=== PATIENT | female | born 2000 | race Caucasian/White ===

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

== ENCOUNTER 2018-08-08 21:14 | Emergency (ER) | payer OTHER ==
[2018-08-08 21:29] VITALS: BP 134/88; PULSE 63; TEMP 98.6; BMI 29.7
--- NOTE | 2018-08-08 21:29 | PDOC ---
Rapid Medical Evaluation Medical Evaluation: Allergies Allergy/AdvReac Type Severity Reaction Status Date / Time No Known Allergies Allergy Verified 08/06/17 16:16 I have performed a brief in-person evaluation of this patient. The patient presents with a chief complaint of: c/o suprapubic pain since 3 days ago along with mild nausea; denies vomiting, diarrhea, urinary complaints Pertinent physical exam findings: In NAD, abdomen soft, ND, NT I have ordered the following: UCG, UA The patient will proceed to the ED for further evaluation. 08/08/18 21:27
[2018-08-08 22:21] LABS: URINE APPEARANCE SLCLOUDY; URINE BILIRUBIN NEGATIVE (<2.0 mg/dL); URINE COLOR YELLOW; URINE GLUCOSE (UA) NEGATIVE (NEGATIVE); URINE KETONE NEGATIVE (NEGATIVE); URINE LEUK ESTERASE NEGATIVE (NEGATIVE); URINE NITRITE NEGATIVE (NEGATIVE); URINE PROTEIN NEGATIVE (NEGATIVE)
[2018-08-08 22:22] LABS: HCG,QUALITATIVE URINE Negative
--- NOTE | 2018-08-08 22:43 | PDOC ---
History of Present Illness - General Chief Complaint: Nausea Stated Complaint: STOMACH PAIN Time Seen by Provider: 08/08/18 21:27 - History of Present Illness Initial Comments: 08/08/18 22:40 18-year-old female without comorbidities presents for evaluation of abdominal pain and nausea without any other associated symptoms Past History - Past Medical History Allergies/Adverse Reactions: Allergies Allergy/AdvReac Type Severity Reaction Status Date / Time No Known Allergies Allergy Verified 08/06/17 16:16 Home Medications: Ambulatory Orders NK [No Known Home Medication] 10/30/15 COPD: No - Immunization History Immunization Up to Date: Yes - Suicide/Smoking/Psychosocial Hx Smoking History: Current some day smoker Number of Cigarettes Smoked Daily: 2 Information on smoking cessation initiated: No Hx Alcohol Use: No Drug/Substance Use Hx: No Substance Use Type: None Review of Systems - Review of Systems Constitutional: No: Fever ABD/GI: Yes: Nausea. No: Constipated, Diarrhea, Vomiting *Physical Exam - Vital Signs Last Vital Signs Temp Pulse Resp BP Pulse Ox 98.6 F 63 18 134/88 100 08/08/18 21:28 08/08/18 21:28 08/08/18 21:28 08/08/18 21:28 08/08/18 21:28 - Physical Exam Comments: 08/08/18 22:41 HEAD: NC/AT EYES: Conjuntiva clear Ears: Canals and TM's normal NOSE: No d/c THROAT: Moist mucous membrances, oral pharanx clear, uvula midline NECK: Supple without adenopathy CARDIAC: S1 S2 LUNGS: CTA Full and Equal breath sounds ABDOMEN: Positive bowel sounds left upper and lower quadrant tenderness with guarding MS: Full ROM in all joints without edema NEUROLOGIC: No gross sensory or motor deficits, NVID SKIN: Normal color and temperature no lesions or rashes Moderate Sedation - Procedure Monitoring Vital Signs: Procedure Monitoring Vital Signs Temperature 98.6 F 08/08/18 21:28 Pulse Rate 63 08/08/18 21:28 Respiratory Rate 18 08/08/18 21:28 Blood Pressure 134/88 08/08/18 21:28 O2 Sat by Pulse Oximetry (%) 100 08/08/18 21:28 ED Treatment Course - ADDITIONAL ORDERS Additional order review: Laboratory Results 08/08/18 21:48 Urine Color Yellow Urine Appearance Slcloudy Urine pH 7.0 Ur Specific [place] 1.026 Urine Protein Negative Urine Glucose (UA) Negative Urine Ketones Negative Urine Blood Negative Urine Nitrite Negative Urine Bilirubin Negative Urine Urobilinogen 2.0 H Ur Leukocyte Esterase Negative Urine HCG, Qual Negative Medical Decision Making - Medical Decision Making 08/08/18 22:42 signed out to main er *DC/Admit/Observation/Transfer Diagnosis at time of Disposition: Abdominal pain - Referrals - Patient Instructions - Post Discharge Activity
[2018-08-08 23:00] LABS: BASO % 0.9 % (0-2.0); HEMATOCRIT 38.7 % (32.4-45.2); HEMOGLOBIN 13.4 GM/dL (10.7-15.3); LYMPH % 28.6 % (8-40); MCHC 34.8 g/dl (32.0-36.0); MEAN CELL VOLUME 86.2 fl (80-96); MEAN PLT VOLUME 8.3 fl (7.5-11.1); MONO % 9.6 % (3.8-10.2); NEUT % 58.9 % (42.8-82.8); PLATELET COUNT 283 K/MM3 (134-434); RBC 4.49 M/mm3 (3.60-5.2); RDW 13.2 % (11.6-15.6); WHITE BLOOD COUNT 9.7 K/mm3 (4.0-10.0)
--- NOTE | 2018-08-08 23:17 | PDOC ---
*Physical Exam - Vital Signs Last Vital Signs Temp Pulse Resp BP Pulse Ox 98.6 F 63 18 134/88 100 08/08/18 21:28 08/08/18 21:28 08/08/18 21:28 08/08/18 21:28 08/08/18 21:28 ED Treatment Course - LABORATORY CBC & Chemistry Diagram: 08/08/18 22:48 08/08/18 22:48 - ADDITIONAL ORDERS Additional order review: Laboratory Results 08/08/18 21:48 Urine Color Yellow Urine Appearance Slcloudy Urine pH 7.0 Ur Specific [place] 1.026 Urine Protein Negative Urine Glucose (UA) Negative Urine Ketones Negative Urine Blood Negative Urine Nitrite Negative Urine Bilirubin Negative Urine Urobilinogen 2.0 H Ur Leukocyte Esterase Negative Urine HCG, Qual Negative 08/08/18 22:48 RBC 4.49 MCV 86.2 MCHC 34.8 RDW 13.2 MPV 8.3 Neutrophils % 58.9 Lymphocytes % 28.6 Monocytes % 9.6 Eosinophils % 2.0 Basophils % 0.9 Medical Decision Making - Medical Decision Making 08/08/18 23:17 Patient seen by the advanced practice provider under my direct supervision. Ancillary testing reviewed as necessary. I agree with plan as outlined by the advanced practice provider. *DC/Admit/Observation/Transfer Diagnosis at time of Disposition: Abdominal pain - Referrals - Patient Instructions - Post Discharge Activity
[2018-08-08 23:31] LABS: ALBUMIN 3.7 g/dl (3.4-5.0); ALK PHOS 73 U/L (45-117); ANION GAP 5 MMOL/L (8-16); BILIRUBIN,TOTAL 0.4 mg/dL (0.2-1); BLOOD UREA NITROGEN 12 mg/dL (7-18); CALCIUM 8.7 mg/dL (8.5-10.1); CHLORIDE 103 mmol/L (98-107); CO2 31 mmol/L (21-32); CREATININE 0.7 mg/dL (0.55-1.3); GLUCOSE,RANDOM 98 mg/dL (74-106); LIPASE 107 U/L (73-393); POTASSIUM 3.7 mmol/L (3.5-5.1); SGOT/AST 23 U/L (15-37); SGPT/ALT 46 U/L (13-61); SODIUM 139 mmol/L (136-145); TOT PROT 7.8 g/dl (6.4-8.2)
--- NOTE | 2018-08-08 23:33 | PDOC ---
*Physical Exam - Vital Signs Last Vital Signs Temp Pulse Resp BP Pulse Ox 98.6 F 63 18 134/88 100 08/08/18 21:28 08/08/18 21:28 08/08/18 21:28 08/08/18 21:28 08/08/18 21:28 - Physical Exam General Appearance: Yes: Appropriately Dressed. No: Apparent Distress Respiratory/Chest: positive: Lungs Clear, Normal Breath Sounds. negative: Respiratory Distress, Accessory Muscle Use Cardiovascular: positive: Regular Rhythm, Regular Rate Gastrointestinal/Abdominal: positive: Normal Bowel Sounds, Tender (left side of abdomen), Soft ED Treatment Course - LABORATORY CBC & Chemistry Diagram: 08/08/18 22:48 08/08/18 22:48 - ADDITIONAL ORDERS Additional order review: Laboratory Results 08/08/18 08/08/18 22:48 21:48 Sodium 139 Potassium 3.7 Chloride 103 Carbon Dioxide 31 Anion Gap 5 L BUN 12 Creatinine 0.7 Creat Clearance w eGFR > 60 Random Glucose 98 Calcium 8.7 Total Bilirubin 0.4 AST 23 ALT 46 Alkaline Phosphatase 73 Total Protein 7.8 Albumin 3.7 Lipase 107 Urine Color Yellow Urine Appearance Slcloudy Urine pH 7.0 Ur Specific [place] 1.026 Urine Protein Negative Urine Glucose (UA) Negative Urine Ketones Negative Urine Blood Negative Urine Nitrite Negative Urine Bilirubin Negative Urine Urobilinogen 2.0 H Ur Leukocyte Esterase Negative Urine HCG, Qual Negative 08/08/18 22:48 RBC 4.49 MCV 86.2 MCHC 34.8 RDW 13.2 MPV 8.3 Neutrophils % 58.9 Lymphocytes % 28.6 Monocytes % 9.6 Eosinophils % 2.0 Basophils % 0.9 Progress Note - Progress Note Progress Note: Received sign out from ERIC Roman. Briefly this is a 18-year-old woman without significant medical history with abdominal pain and nausea. Patient was seen and evaluated in our fast track area was determined to have left-sided abdominal tenderness with guarding. Laboratory testing has been sent and patient is pending CT scan at this time. Medical Decision Making - Medical Decision Making 08/09/18 02:13 Laboratory testing is unremarkable. CT of the abdomen and pelvis as read by imaging operations and maintenance technican: Fatty liver. Possible mesenteric adenitis. I will discharge patient home. I discussed the physical exam findings, ancillary test results and final diagnoses with the patient. I answered all of the patient's questions. The patient was satisfied with the care received and felt comfortable with the discharge plan and treatment plan. The patient will call their primary care physician within 24 hours to arrange follow-up and will return to the Emergency Department with any new, persistent or worsening symptoms. *DC/Admit/Observation/Transfer Diagnosis at time of Disposition: Mesenteric adenitis - Discharge Dispostion Disposition: HOME Condition at time of disposition: Stable Decision to Admit order: No - Prescriptions Prescriptions: Ondansetron [Zofran Odt -] 4 mg SL TID #21 od.tablet - Referrals - Patient Instructions Additional Instructions: Rest, drink lots of fluids: Teas, water, soups Ana meghan, carbonated beverages for the bubbles May try peppermint teas Avoid heavy , spicy or fatty foods until symptoms have resolved Avoid contact with others until fevers and symptoms resolved Lots of handwashing and good hygiene Continue [id number] medications for symptomatic relief Tylenol or Motrin for fever and pain May use Zofran-one tablet dissolved on tongue as needed for nauseousness. May repeat times one every 8 hours Followup with private physician in one to 2 days as needed Return to emergency department for worsened symptoms, fevers, dehydration - Post Discharge Activity
== END 2018-08-09 02:28 | disposition home or self-care (01) ==
LOC: JERFT 21:14 → JER 21:14
DX: I88.0 Nonspecific mesenteric lymphadenitis (principal)
CPT/HCPCS: 36415; 74177-TC; 80053; 81003; 83690; 84703; 85025; 99281-25